=== PATIENT | male | born 1980 | race African-American/Black ===

== ENCOUNTER 2019-10-26 23:09 | Emergency (ER) | payer OTHER ==
[~2019-10-26] VITALS: Ht 182.9 cm; Wt 133.8 kg
--- NOTE | ~2019-10-26 | EMS ---
[address] [address] EMS Patient Care Report Name: LENARD GARCÍA Room #: DEP RADHA Hernandes#: [id number] Admission: 10/26/19 Attend Phys: Discharge: 10/27/19 Date of : 80 Report #: [id number] THIS REPORT FOR: //name// Report Transmitted: 10/27/2019 21:48 EMS Care Summary [place], [place]/[facility] Incident [id number] @ 10/26/2019 22:23 Incident Location [address] [place] [address] Patient LENARD GARCÍA Male, 39 Years 1980 Patient Address [address] [place] [address] Patient History None Reported, Patient Allergies No known allergies, Patient Medications None Reported, Chief Complaint FAINTED Disposition Transported No Lights/[place] Dispatch Reason Sick Person Transported To [facility] Narrative PT IS HAVING BELIEVES PT IS HAVING AN ANXIETY ATTACK. PT STATES THAT PT FEELS NUMBNESS AND AND TINGLING IN PT'S HANDS, FEET, AND FACE. DENIES ANY ALCOHOL OR STREET DRUGS. PT STATES THAT PT HAS PAIN DOWN PT'S LEFT ARM AND UP INTO PT'S LEFT JAW. PT DENIES ANY NAUSEA. PT DENIES SOA. PT DENIES ANY COUGH. PT DENIES ANY RECENT FEVER. [place] [address] EMS Patient Care Report Name: LENARD GARCÍA Room #: [facility]P [facility] [id number] Admission: 10/26/19 Attend Phys: Discharge: 10/27/19 Date of : 80 Report #: [id number] PT WAS FOUND LAYING ON THE FLOOR IN THE PARKING [place]. PT SPOKE IN FULL AND COMPLETE SENTENCES. PT IS UNABLE TO STAND AND PIVOT TO GET ONTO EMS COT. PT HAS NO OTHER OBVIOUS ABNORMALITIES. Initial Vitals @22:50P: 87,BP: 160/115,SpO2: 97, @22:48P: 85,CO: 4,SpO2: 97, @22:37P: 87,R: 18,BP: 167/115,Pain: 10/10,GCS: 15,CO: 3,SpO2: 92,Revised Trauma: 12, @22:49P: 86,R: 18,Pain: 0/10,GCS: 15, Assessments @22:34MENTAL:Person Oriented,Event Oriented,Place Oriented,Time Oriented,SKIN:HEENT:Eyes: Left Pupil: 4-mm,Eyes: Right Pupil: 4-mm,Head/Face: No Abnormalities,Neck/Airway: No Abnormalities,LUNG SOUNDS:General: No Abnormalities,ABDOMEN:General: No Abnormalities,PELVIS//GI:EXTREMITIES:Capillary Refill: Right Upper: < 2 Sec,Left Arm: No Abnormalities,Right Arm: No Abnormalities,Left Leg: No Abnormalities,Right Leg: No Abnormalities,PULSE:Radial: 2+ Normal,NEURO:No Abnormalities, Impression Syncope / Fainting Procedures @22:4912-Lead ECGResponse: UnchangedSucceeded@22:34ALS AssessmentSucceeded@22:37Saline Lock 10cc (18 ga) Site: Hand-LeftResponse: UnchangedSucceeded@22:52Aspirin - 324 Milligrams (mg) - OralResponse: Unchanged Timeline 22:22,Call Received 22:22,Dispatch Notified 22:23,Dispatched 22:26,En Route 22:28,On Scene 22:29,At Patient 22:34,ALS Assessment,Succeeded, 22:37,Saline Lock 10cc 18 ga Site: Hand-Left,Response: UnchangedSucceeded, 22:37,BP: 167/115 M,PULSE: 87,RR: 18 R,SPO2: 92 Ox,ETCO2: ,BG: ,PAIN: 10,GCS: 15, 22:48,BP: / M,PULSE: 85,RR: R,SPO2: 97 Ox,ETCO2: ,BG: ,PAIN: ,GCS: , 22:49,12-Lead ECG,Response: UnchangedSucceeded, 22:49,BP: / M,PULSE: 86,RR: 18 R,SPO2: Ox,ETCO2: ,BG: ,PAIN: 0,GCS: 15, 22:50,BP: 160/115 M,PULSE: 87,RR: R,SPO2: 97 Ox,ETCO2: ,BG: ,PAIN: ,GCS: , 22:52,Aspirin - 324 Milligrams (mg) - Oral,Response: Unchanged [address] [address] EMS Patient Care Report Name: LENARD GARCÍA Room #: DEP RADHA Hernandes#: [id number] Admission: 10/26/19 Attend Phys: Discharge: 10/27/19 Date of : 80 Report #: [id number] 22:54,Depart Scene 23:00,At Destination 23:25,Call Closed Disclaimer v1.1 Copyright 2020 [employer] This EMS Care Summary contains data elements from the applicable legal record (which may be displayed differently). It is designed to provide pertinent information for the following purposes: continuity of care, clinical quality, and state data reporting. The complete legal record is available to ED staff and administrators of the receiving hospital in [employer] Patient Tracker. All data is provided "as is."
[2019-10-26 23:32] LABS: ABSOLUTE NEUTROPHILS 3.3 thou/uL (1.4-8.2); BASOPHILS 0.8 % (0.0-2.0); EOSINOPHILS 2.1 % (0.0-3.0); HEMATOCRIT 44.5 % (42.0-52.0); HEMOGLOBIN 15.3 gm/dL (14.0-18.0); LYMPHOCYTES 30.9 % (24.0-44.0); MCH 26.2 pg (26.0-34.0); MCHC 34.3 g/dL (28.0-37.0); MCV 76.3 fL (80.0-100.0); MONOCYTES 8.5 % (1.0-8.0); PLATELET COUNT 173 thou/uL (150-400); POLYS 57.7 % (36.0-66.0); RBC 5.83 mil/uL (4.50-6.00); RDW 15.4 % (10.5-14.5); WBC 5.8 thou/uL (4.0-11.0)
[2019-10-26 23:51] LABS: ANION GAP 11 mmol/L (7-16); BUN 13 mg/dL (7-18); CALCIUM 9.1 mg/dL (8.5-10.1); CHLORIDE 102 mmol/L (98-107); CO2 26 mmol/L (21-32); CREATININE 1.1 mg/dL (0.7-1.3); GLUCOSE 92 mg/dL (74-106); POTASSIUM 3.9 mmol/L (3.5-5.1); SODIUM 139 mmol/L (136-145)
[2019-10-27] LABS: TROPONIN-I <0.06 ng/mL (<0.06)
[2019-10-27 00:38] VITALS: BP 182/89
--- NOTE | 2019-10-28 13:03 | EKG ---
[facility] [place] [address] [place] [address] ELECTROCARDIOGRAM REPORT Name: LENARD GARCÍA [id number] Admission: 10/26/19 Attend Phys: Discharge: 10/27/19 Date of : [birth year] Report #: [id number] THIS REPORT FOR: cc: FAM - No family physician/PCP FAM - No family physician/PCP Eagle Jay MD ~ THIS REPORT FOR: //name// [facility] ED Test Date: 2019-10-26 Test Time: 23:16:31 Pat Name: LENARD GARCÍA Department: Room: Gender: Clay Stain Mixer: : 1980 Requested By: Yaniv Trimble Order Number: [id number] MD: Eagle Jay Measurements Intervals [place] Rate: 82 P: 18 PA: 140 QRS: 42 QRSD: 105 T: -11 QT: 365 QTc: 427 Interpretive Statements Sinus rhythm Probable left ventricular hypertrophy Anterior ST elevation, probably due to LVH No previous ECG available for comparison Electronically Signed On 10-28-2019 13:02:12 CDT by Eagle Jay [email or web address] <ELECTRONICALLY SIGNED> By: Eagle Jay MD 10/28/19 1302 15 15 Eagle Jay MD /COLLETTE
== END 2019-10-27 00:39 | disposition home or self-care (01) ==
LOC: ER 23:09
PROVIDERS: Emergency Medicine
DX: R07.9 Chest pain, unspecified (principal); R03.0 Elevated blood-pressure reading, without diagnosis of hypertension; R06.02 Shortness of breath